=== PATIENT | male | born 1980 | race Caucasian/White ===

== ENCOUNTER 2022-12-17 20:55 | Emergency (ER) | payer MEDICAID, OTHER ==
[2022-12-18 02:58] VITALS: BP 123/84; PULSE 62
== END 2022-12-18 | disposition home or self-care (01) ==
LOC: FB.ED 20:55
DX: K21.9 Gastro-esophageal reflux disease without esophagitis (principal); R09.1 Pleurisy
CPT/HCPCS: 36415; 71046; 84484; 85025; 85379; 86140; 93005; 93010; 99283; 99284